=== PATIENT | female | born 1955 | race Caucasian/White ===

== ENCOUNTER → 2017-02-11 | Outpatient (CLI) | payer OTHER ==
[~2017-02-11] MED LIST: ABILIFY5 MG PO; AMLODIPINE10 MG PO; ANAPROX DS550 MG PO; ATIVAN0.5 MG PO; BUPROPION HCL150 M1 PO; COREG25 MG PO; DARVOCET N 1001 TAB PO; DAYPRO600 M1 PO; FERROUS SULFAT325 M1 PO; IBUPROFEN 30 M800 MG PO; LAMOTRIGINE200 MG PO; LASIX40 MG PO; LUVOX CR100 MG PO; METFORMIN1000 MG PO; METFORMIN500 MG PO; Meclizine25 MG; NAPROXEN500 M1 PO; PRILOSEC40 MG PO; ROBAXIN750 MG PO; SIMVASTATIN40 MG PO; ULTRAM50 MG PO; VICODIN 500 MG-1 TAB PO; [UNRECOGNIZED DRUG - MIXTURE] PO
[2017-02-11 09:37] LABS: HEMATOCRIT 35.5 % (37.0-47.0); HEMOGLOBIN 11.4 g/dl (12.0-16.0); MEAN CELL VOLUME 86.6 fl (81.0-99.0); MEAN CORPUSCULAR HGB 27.8 pg (27.0-31.0); MEAN CORPUSCULAR HGB CONC 32.1 g/dl (33.0-37.0); MEAN PLATELET VOLUME 9.5 fl (9.6-12.3); RED BLOOD COUNT 4.1 10*6/uL (4.10-5.10); RED CELL DISTRI WIDTH 14.2 % (0-14.5); WHITE BLOOD COUNT 4.8 10*3/uL (4.8-10.8)
[2017-02-11 09:49] LABS: ALBUMIN 3.7 gm/dl (3.1-4.5); ALKALINE PHOSPHATASE 84 U/L (45-117); BILIRUBIN, TOTAL 0.4 mg/dl (0.2-1.0); BUN 12 mg/dl (7-24); CARBON DIOXIDE 28 mmol/L (21-32); CHLORIDE 106 mmol/L (98-107); CHOLESTEROL 171 mg/dL (<200); EST GLOM FILT AFRICAN AMERICAN > 60 ml/min; GLUCOSE 118 mg/dL (65-99); HDL CHOLESTEROL 52 mg/dl (40-60); LDL CHOLESTEROL 91 mg/dL (9-159); POTASSIUM 3.9 mmol/L (3.5-5.1); SGOT/AST 16 IU/L (3-35); SGPT/ALT 17 U/L (12-78); SODIUM 144 mmol/L (136-145); TOTAL PROTEIN 6.8 gm/dL (6.4-8.2); TRIGLYCERIDES 141 mg/dl (<150); VLDL CHOLESTEROL 28 mg/dL (6-40)
[2017-02-11 09:59] LABS: HEMOGLOBIN A1c 5.9 % (4.8-5.6)
== END | disposition home or self-care (01) ==
LOC: LAB 09:14
PROVIDERS: Family Medicine
DX: I10 Essential (primary) hypertension (principal); E78.00 Pure hypercholesterolemia, unspecified; E74.9 Disorder of carbohydrate metabolism, unspecified; E55.9 Vitamin D deficiency, unspecified

== ENCOUNTER → 2017-05-18 | Outpatient (CLI) | payer OTHER ==
[2017-05-18 10:19] LABS: ALBUMIN 3.6 gm/dl (3.1-4.5); BILIRUBIN, TOTAL 0.2 mg/dl (0.2-1.0); POTASSIUM 4.4 mmol/L (3.5-5.1); TOTAL PROTEIN 7.2 gm/dL (6.4-8.2)
== END | disposition home or self-care (01) ==
LOC: LAB 09:37
PROVIDERS: Family Medicine
DX: I10 Essential (primary) hypertension (principal); E78.00 Pure hypercholesterolemia, unspecified; F41.1 Generalized anxiety disorder; E74.00 Glycogen storage disease, unspecified; R73.09 Other abnormal glucose

== ENCOUNTER → 2017-07-16 | Outpatient (CLI) | payer OTHER ==
[2017-07-16 11:02] LABS: HEMATOCRIT 35.2 % (37.0-47.0); HEMOGLOBIN 11.6 g/dl (12.0-16.0); MEAN CELL VOLUME 84.2 fl (81.0-99.0); MEAN CORPUSCULAR HGB 27.8 pg (27.0-31.0); MEAN PLATELET VOLUME 9.3 fl (9.6-12.3); RED BLOOD COUNT 4.18 10*6/uL (4.10-5.10); RED CELL DISTRI WIDTH 14.1 % (0-14.5); WHITE BLOOD COUNT 5.2 10*3/uL (4.8-10.8)
[2017-07-16 11:23] LABS: ALBUMIN 3.6 gm/dl (3.1-4.5); ALKALINE PHOSPHATASE 81 U/L (45-117); BUN 15 mg/dl (7-24); CHLORIDE 100 mmol/L (98-107); CHOLESTEROL 188 mg/dL (<200); CREATININE 0.87 mg/dL (0.55-1.02); HDL CHOLESTEROL 54 mg/dl (40-60); LDL CHOLESTEROL 112 mg/dL (9-159); POTASSIUM 3.4 mmol/L (3.5-5.1); SGOT/AST 12 IU/L (3-35); SGPT/ALT 11 U/L (12-78); SODIUM 140 mmol/L (136-145); TOTAL PROTEIN 6.7 gm/dL (6.4-8.2); TRIGLYCERIDES 110 mg/dl (<150); VLDL CHOLESTEROL 22 mg/dL (6-40)
== END | disposition home or self-care (01) ==
LOC: LAB 10:38
PROVIDERS: Family Medicine
DX: E78.00 Pure hypercholesterolemia, unspecified (principal); E55.9 Vitamin D deficiency, unspecified; M19.90 Unspecified osteoarthritis, unspecified site; I10 Essential (primary) hypertension; Z79.899 Other long term (current) drug therapy

== ENCOUNTER → 2017-09-16 | Outpatient (CLI) | payer OTHER | END | disposition home or self-care (01) | LOC: MAMMO 09-09 08:40 | DX: Z12.31 Encounter for screening mammogram for malignant neoplasm of breast (principal) ==

== ENCOUNTER 2017-10-28 13:48 | Emergency (ER) | payer OTHER ==
[~2017-10-28] VITALS: Ht 165.1 cm; Wt 98.9 kg
== END 2017-10-28 15:00 | disposition home or self-care (01) ==
LOC: ED 13:48
DX: R93.0 Abnormal findings on diagnostic imaging of skull and head, not elsewhere classified (principal); Z90.711 Acquired absence of uterus with remaining cervical stump; Z79.899 Other long term (current) drug therapy

== ENCOUNTER → 2017-11-18 | Outpatient (CLI) | payer OTHER ==
[2017-11-18 12:04] LABS: ALBUMIN 3.6 gm/dl (3.1-4.5); BUN 21 mg/dl (7-24); CHLORIDE 104 mmol/L (98-107); CREATININE 1.02 mg/dL (0.55-1.02); POTASSIUM 3.9 mmol/L (3.5-5.1); SGOT/AST 15 IU/L (3-35); SGPT/ALT 18 U/L (12-78); SODIUM 140 mmol/L (136-145); TOTAL PROTEIN 7.4 gm/dL (6.4-8.2)
[2017-11-18 12:05] LABS: ALKALINE PHOSPHATASE 100 U/L (45-117)
== END | disposition home or self-care (01) ==
LOC: EDSTATUS 10:52 → LAB 10:52
PROVIDERS: Family Medicine
DX: E87.6 Hypokalemia (principal)

== ENCOUNTER → 2018-01-27 | Outpatient (CLI) | payer OTHER ==
[2018-01-27 12:25] LABS: ALBUMIN 3.4 gm/dl (3.1-4.5); BUN 23 mg/dl (7-24); CHLORIDE 101 mmol/L (98-107); CHOLESTEROL 188 mg/dL (<200); CREATININE 1.02 mg/dL (0.55-1.02); POTASSIUM 3.5 mmol/L (3.5-5.1); SGOT/AST 9 IU/L (3-35); SGPT/ALT 16 U/L (12-78); SODIUM 139 mmol/L (136-145)
[2018-01-27 12:27] LABS: ALKALINE PHOSPHATASE 81 U/L (45-117); CPK 19 U/L (26-192); HDL CHOLESTEROL 52 mg/dl (40-60); LDL CHOLESTEROL 93 mg/dL (9-159); TOTAL PROTEIN 6.7 gm/dL (6.4-8.2); TRIGLYCERIDES 214 mg/dl (<150); VLDL CHOLESTEROL 43 mg/dL (6-40)
== END | disposition home or self-care (01) ==
LOC: LAB 11:13
PROVIDERS: Family Medicine
DX: I10 Essential (primary) hypertension (principal); E78.00 Pure hypercholesterolemia, unspecified; E74.9 Disorder of carbohydrate metabolism, unspecified; F41.1 Generalized anxiety disorder; E74.09 Other glycogen storage disease; K21.9 Gastro-esophageal reflux disease without esophagitis; R73.09 Other abnormal glucose; Z79.899 Other long term (current) drug therapy

== ENCOUNTER → 2018-06-16 | Outpatient (CLI) | payer MEDICARE, MEDICAID ==
[2018-06-16 09:40] LABS: HEMATOCRIT 36.2 % (37.0-47.0); HEMOGLOBIN 11.6 g/dl (12.0-16.0); MEAN CELL VOLUME 86.6 fl (81.0-99.0); MEAN CORPUSCULAR HGB 27.8 pg (27.0-31.0); MEAN PLATELET VOLUME 10.3 fl (9.6-12.3); RED BLOOD COUNT 4.18 10*6/uL (4.10-5.10); RED CELL DISTRI WIDTH 14.1 % (0-14.5); WHITE BLOOD COUNT 6.3 10*3/uL (4.8-10.8)
[2018-06-16 10:13] LABS: ALBUMIN 3.7 gm/dl (3.1-4.5); CREATININE 1.25 mg/dL (0.55-1.02); POTASSIUM 3.9 mmol/L (3.5-5.1); TOTAL PROTEIN 7.2 gm/dL (6.4-8.2)
== END | disposition home or self-care (01) ==
LOC: LAB 08:48
PROVIDERS: Family Medicine
DX: I48.91 Unspecified atrial fibrillation (principal); E74.9 Disorder of carbohydrate metabolism, unspecified; E78.00 Pure hypercholesterolemia, unspecified; E55.9 Vitamin D deficiency, unspecified; D64.9 Anemia, unspecified; Z79.899 Other long term (current) drug therapy

== ENCOUNTER → 2018-08-08 | Outpatient (CLI) | payer MEDICARE, MEDICAID ==
[2018-08-08 10:55] LABS: ALBUMIN 3.4 gm/dl (3.1-4.5); ALKALINE PHOSPHATASE 78 U/L (45-117); BUN 16 mg/dl (7-24); CHLORIDE 104 mmol/L (98-107); CREATININE 1.03 mg/dL (0.55-1.02); POTASSIUM 3.9 mmol/L (3.5-5.1); SGOT/AST 9 IU/L (3-35); SGPT/ALT 12 U/L (12-78); SODIUM 143 mmol/L (136-145); TOTAL PROTEIN 6.5 gm/dL (6.4-8.2)
== END | disposition home or self-care (01) ==
LOC: LAB 08:10
PROVIDERS: Nurse Practitioner Family
DX: I48.91 Unspecified atrial fibrillation (principal); F33.1 Major depressive disorder, recurrent, moderate; I10 Essential (primary) hypertension; E78.5 Hyperlipidemia, unspecified; R94.39 Abnormal result of other cardiovascular function study

== ENCOUNTER → 2018-11-10 | Outpatient (CLI) | payer MEDICARE, OTHER ==
[~2018-11-10] MED LIST changes: +CEFUROXIME AXE250 MG PO; +ELIQUIS5 M1 PO; +FLUVOXAMINE100 MG PO; +Ipratropium Brom3 ML NEB; +K-LOR 20MEQ20 ME1 PO; +LOPRESSOR25 MG PO; +PERCOCET 5-3251 EACH PO; +PRAVACHOL20 MG PO; +PREDNISONE5 MG PO; +PROPAFENONE HC150 MG PO; +VRAYLAR3 MG PO
[2018-11-10 09:38] LABS: HEMOGLOBIN 12.1 g/dl (12.0-16.0); MEAN CORPUSCULAR HGB 27.7 pg (27.0-31.0); MEAN CORPUSCULAR HGB CONC 31.8 g/dl (33.0-37.0); MEAN PLATELET VOLUME 9.7 fl (9.6-12.3); RED BLOOD COUNT 4.37 10*6/uL (4.10-5.10); RED CELL DISTRI WIDTH 15.2 % (0-14.5); WHITE BLOOD COUNT 4.5 10*3/uL (4.8-10.8)
[2018-11-10 09:54] LABS: CHLORIDE 109 mmol/L (98-107); SODIUM 142 mmol/L (136-145)
[2018-11-10 10:14] LABS: ALBUMIN 3.5 gm/dl (3.1-4.5); ALKALINE PHOSPHATASE 94 U/L (45-117); BUN 18 mg/dl (7-24); CHOLESTEROL 182 mg/dL (<200); CPK 23 U/L (26-192); CREATININE 0.92 mg/dL (0.55-1.02); HDL CHOLESTEROL 50 mg/dl (40-60); LDL CHOLESTEROL 111 mg/dL (9-159); SGOT/AST 9 IU/L (3-35); SGPT/ALT 15 U/L (12-78); TOTAL PROTEIN 7.1 gm/dL (6.4-8.2); TRIGLYCERIDES 107 mg/dl (<150); VLDL CHOLESTEROL 21 mg/dL (6-40)
== END | disposition home or self-care (01) ==
LOC: LAB 08:55
PROVIDERS: Family Medicine
DX: I10 Essential (primary) hypertension (principal); E55.9 Vitamin D deficiency, unspecified; E74.9 Disorder of carbohydrate metabolism, unspecified; E78.00 Pure hypercholesterolemia, unspecified; R53.83 Other fatigue

== ENCOUNTER 2018-11-16 21:56 | Inpatient (IN) | payer MEDICARE, OTHER ==
[~2018-11-16] VITALS: Ht 162.5 cm; Wt 99.3 kg
--- NOTE | ~2018-11-16 | PR ---
[place], [place] PROGRESS NOTE NAME: DIGNA PITTMAN [facility] #: [id number] UNIT #: [id number] ROOM: 507 DOCTOR: JAEL GAO MD BIRTHDATE: [birth year] DOS: 11/18/2018 SUBJECTIVE: The patient is about to undergo bronchoscopy this morning. Does not have any new complaints. OBJECTIVE: VITAL SIGNS: Graphic trend shows a pressure 127/64, pulse of 73, respirations 18 and temperature 97.5. LUNGS: Diminished breath sounds, scattered wheezes and rhonchi. HEART: Regular. ABDOMEN: Obese, soft. EXTREMITIES: Without any edema. CT of the chest done yesterday showed volume loss with consolidative process in the right lower lobe and left lower lobe, ground glass opacities in the right upper lobe. This is a large hiatal hernia, possibility of gastric outlet obstruction was raised but clinically there is no evidence of that. ASSESSMENT AND PLAN: 1. Consolidation with pneumonia, bilateral lower lung carbajal with volume loss. The patient to undergo bronchoscopy for possible mucous plugging. 2. Large hiatal hernia. Discussed with the patient about having surgery as an outpatient. Right now, there is no evidence of volvulus or obstruction. 3. Benign hypertension, controlled. JAEL GAO MD CM:PNTRANS [id number] JAEL GAO MD 11/18/18 1431 interface
--- NOTE | ~2018-11-16 | WRIGHTHP ---
[place], [place] PATIENT HISTORY AND PHYSICAL EXAM NAME: DIGNA PITTMAN [facility] #: [id number] UNIT #: [id number] ROOM: 507 DOCTOR: JAEL GAO MD BIRTHDATE: [birth year] DOS: HISTORY OF PRESENT ILLNESS: The patient states for the last week, she has not felt good. She has had diffuse aches and pains and inability to ambulate because of extreme weakness and tiredness and has had a cough, so she decided to come into the Emergency Room where she was evaluated and was diagnosed with pneumonitis and was admitted. This morning, she has continued to have a moist cough and she has audible wheezing. She denied having any chest pains, palpitations, does not have any fever or chills, does not have any abdominal pain, nausea, any emesis. PAST MEDICAL HISTORY: Significant for; 1. History of atrial fibrillation. 2. Hypertension. 3. Type 2 diabetes mellitus. MEDICATIONS: Amlodipine, omeprazole, metformin, Vraylar, fluvoxamine, Pravachol, potassium, Eliquis, propafenone, metoprolol, oxycodone, Lamictal, and Lasix. SOCIAL HISTORY: Nonsmoker right now. Denies using any alcohol. Lives at home. PHYSICAL EXAMINATION: GENERAL: She is awake and alert and oriented. VITAL SIGNS: Graphic trend shows a blood pressure of 116/76, pulse of 78, respirations 18, temperature 97.9. LUNGS: Diminished breath sounds, scattered wheezes and rhonchi. HEART: Regular. ABDOMEN: Soft, nontender. EXTREMITIES: Without any edema. ASSESSMENT AND PLAN: 1. The patient comes in with cough and feeling poorly. Flu titer was done, which was negative. I believe the patient has acute asthmatic bronchitis. The patient will be placed on IV steroids and breathing treatments and IV antibiotics. We will also arrange for a CT of the chest to make sure she does not have an infectious process in the lung. 2. Chronic atrial fibrillation, on Eliquis, which will be continued. 3. Benign hypertension, controlled. 4. Type 2 diabetes mellitus. Restart home medications. [place], [place] PATIENT HISTORY AND PHYSICAL EXAM NAME: DIGNA PITTMAN [facility] #: [id number] UNIT #: [id number] ROOM: 507 DOCTOR: JAEL GAO MD BIRTHDATE: [birth year] JAEL GAO MD CM:HISPHYS:PATIENT HISTORY AND PHYSICAL EXAMINATION [id number] JAEL GAO MD 11/18/18 1235 interface
--- NOTE | ~2018-11-16 | PR ---
[place], [place] PROGRESS NOTE NAME: [facility] [id number] UNIT #: [id number] ROOM: 507 DOCTOR: ROGERIO LEOS MD BIRTHDATE: [birth year] DOS: 11/22/2018 SUBJECTIVE: The patient was noted comfortable at this time without any acute distress, resting comfortably on the bed. She has not been reported any symptoms of fever or chills. The coughing has been improving. The patient was noted with pulse ox sat 88% per nursing staff. The patient woke up from sleep and on room air. PHYSICAL EXAMINATION: VITAL SIGNS: Normal temperature, respiratory rate 18, heart rate 73, blood pressure 141/73. Pulse oxygen saturation at rest otherwise noted 92% later on. HEENT: Examination shows chronic obesity. NECK: Supple. CARDIOVASCULAR: S1, S2 is audible. LUNGS: The patient without any wheeze or crackles at this time. ABDOMEN: Soft, nontender. Bowel sounds present. EXTREMITIES: The patient was noted without any acute edema. IMPRESSION: 1. The patient who has been currently noted with progressive resolution and improvement in acute exacerbation of chronic obstructive pulmonary disease after bronchoscopy. The coughing, wheezing, and shortness of breath has improved markedly. 2. Chronic obesity. 3. Possible suspicion of obstructive sleep apnea disorder as well with nocturnal hypoxia. PLAN OF MANAGEMENT: Home oxygen assessment with a 6-minute walk test could be done. The patient will be continued other therapy for plan of management previously in progress. The discharge planning was discussed with Dr. Islas. Oxygen supplementation prescribed upon discharge if needed. Outpatient assessment recommended for pulmonary disease and possible sleep apnea disorder as well. [place], [place] PROGRESS NOTE NAME: DIGNA PITTMAN UNIT #: [id number] ROOM: 507 DOCTOR: ROGERIO LEOS MD BIRTHDATE: [birth year] ROGERIO ARGUETA MD CM:PNTRANS [id number] ROGERIO DORAN MD 11/22/18 1511 interface
--- NOTE | ~2018-11-16 | CON ---
[place], [place] REPORT OF CONSULTATION NAME: DIGNA PITTMAN [facility] #: [id number] UNIT #: [id number] ROOM: 507 DOCTOR: ROGERIO LEOS MD BIRTHDATE: [birth year] DOS: 11/18/2018 PULMONARY CONSULTATION, EVALUATION AND MANAGEMENT REQUESTING PHYSICIAN: Dr. Jessica Walton REASON FOR CONSULTATION: Bronchoscopy with atelectasis of the lung, rule out endobronchial obstruction. HISTORY OF PRESENT ILLNESS: A 63-year-old white female patient, who had been seen in my office in 2009 and has not had any regular followup visit. The patient has been seen at that time for sleep apnea disorder management. She has been admitted under the care of Dr. Jessica Walton and primary care physician of the patient is noted as Dr. Sherman. The symptoms have been reported with general progressive weakness and tiredness ongoing for the past 3 days. The symptoms have been noted progressive. She started having symptoms of cough, chest congestion, and inability to expectorate sputum. Denies symptoms of hemoptysis. The patient also developed progressive wheezing with current symptoms as well. Denies symptoms of chest pain. The patient's shortness breath was noted worsened. She came into the emergency room where she has been admitted to the hospital. Chest x-ray was done, and then later on, CT scan chest was done that shows possibility of obstruction and partial atelectasis of the right lower lobe and other abnormalities on CT scan reported. She has been made n.p.o. for bronchoscopy, which was planned to be done today for further assessment and the patient was agreeable for that. REVIEW OF SYSTEMS: CONSTITUTIONAL: Fatigue and tiredness noted. Denies symptoms of fever or chills. EYES: Denies any burning, redness, or tenderness. EARS, NOSE, THROAT: Denies sore throat, hoarseness, otalgia, postnasal drainage or epistaxis. CARDIOVASCULAR: Denies anginal pain, edema or pain of the lower extremities. GASTROINTESTINAL: Denies dysphagia, nausea, vomiting, diarrhea, abdominal pain, hematemesis, melena, or abnormal weight loss. History of chronic moderate obesity is known. GENITOURINARY: Denies dysuria, urinary incontinence, hematuria or flank pain. MUSCULOSKELETAL: Denies acute joint pain, redness, or tenderness. SKIN: Denies abnormal lesions or rashes. CENTRAL NERVOUS SYSTEM: Denies dizziness, headache, diplopia or syncopal episodes. Remaining systems were reviewed, they were noted all negative. PAST MEDICAL HISTORY: 1. Known with history of obstructive sleep apnea disorder diagnosed in 2003, which was moderate to severe, treated with CPAP. 2. History of permanent atrial fibrillation. 3. Essential hypertension. 4. Type 2 diabetes mellitus. [place], [place] REPORT OF CONSULTATION NAME: DIGNA PITTMAN UNIT #: [id number] ROOM: 507 DOCTOR: ROGERIO LEOS MD BIRTHDATE: [birth year] 5. Chronic moderate obesity. 6. History of general anxiety disorder. 7. History of bipolar disorder. 8. Intervertebral disk disease with lower back pain. SOCIAL HISTORY: The patient is and lives at home. She has not reported any symptoms of alcohol or any illicit drug use. She has been known with past history of tobacco use, but not noted active tobacco use at the present time. PAST SURGICAL HISTORY: Reported as partial hysterectomy. FAMILY HISTORY: Reported for diabetes and cancer. The patient's father at 62 years from complication of lung cancer. Mother at the age of 6464 years old from adrenal gland cancer as well. MEDICATIONS: Medications which have been currently administered on this hospitalization are use of omeprazole, simvastatin, Prozac, metformin, propafenone, Solu-Medrol 200 mg b.i.d., Mucinex, metoprolol tartrate, Lasix, Lamictal, Tegretol, amlodipine, Eliquis, Mucinex, DuoNeb, Rocephin, and Zithromax. DRUG ALLERGIES: The patient is reported as no known drug allergies. PHYSICAL EXAMINATION: GENERAL: This is a 63-year-old female patient, currently noted to be awake and alert this morning of assessment. Height of 5 feet 4 inches, weight of 219 pounds, BMI is 37. VITAL SIGNS: Normal temperature, respiratory rate 18-20, heart rate 73-80, blood pressure 124/64 to 123/60. Pulse oxygen saturation was recorded at rest on room air as 93% saturation, later today on nasal cannula 96% saturation. HEENT: Head was atraumatic. Eyes nonicterus. NECK: Supple. Decreased posterior pharyngeal space. CARDIOVASCULAR: S1 and S2 audible. LUNGS: The patient was noted with decreased breath sounds bilaterally with scattered wheezing and crackles in the lungs bilaterally, more on the right than the left side. ABDOMEN: Soft, obese, nontender. Bowel sound is present. EXTREMITIES: The patient is noted without any acute edema, clubbing or cyanosis. Chronic obesity findings. MUSCULOSKELETAL: Without any acute deformities. CENTRAL NERVOUS SYSTEM: Cranial nerves 2-12 intact. LABORATORY DATA: Lactic acid noted 2.5 yesterday noted normal on 11/17/2018. CBC of 11/17/2018, WBC count 12.6, hemoglobin 10.3, hematocrit 32.0, platelet count was normal. Influenza A and B, nasal washing antigen on 11/17/2018 was negative. CMP that was done on 11/17/2018 noted BUN 29, creatinine 1.36, glucose 116, sodium 134, magnesium 1.2. Chest x-ray that was done on 11/17/2018 was noted with elevation of the right hemidiaphragm. CT scan of the chest that was done on 11/17/2018 was noted eventration of the right hemidiaphragm with a large hiatal hernia, volume loss, air bronchogram, and consolidative change in [place], [place] REPORT OF CONSULTATION NAME: DIGNA PITTMAN UNIT #: [id number] ROOM: 507 DOCTOR: HAROLDO LEOS MDM BIRTHDATE: [birth year] the right lower lobe as well as in the medial left lower lobe. IMPRESSION: 1. The patient has been currently admitted to the hospital with acute exacerbation of chronic obstructive pulmonary disease. 2. History of past tobacco use, rule out endobronchial obstruction with mucus or endobronchial malignant process. 3. The patient with chronic severe obesity and obstructive sleep apnea disorder as well. 4. History of permanent atrial fibrillation with long-term anticoagulation. 5. A very large hiatal hernia noted, which is noted mostly in the right side of the chest giving false-appearing eventration of the hemidiaphragm. 6. The patient with history of essential hypertension. 7. Type 2 diabetes mellitus. 8. Mild hypomagnesemia. 9. The patient with elevation of BUN and creatinine, consider acute kidney injury secondary to intravascular volume depletion. PLAN OF MANAGEMENT: Bronchoscopy will be done this morning, which will be diagnostic and therapeutic at the same time. Continue current medical management of current acute pneumonia suspicion. Continue steroids for medical management of acute exacerbation of COPD. Bronchodilator is to be continued as well at the same dose. Other treatment changes will be made based on progression of the illness. The risks and the benefits of bronchoscopy were discussed with the patient and she was agreeable for the procedure to be performed. Other additional treatment changes will be made for the patient based on progression of the illness. She was noted with elevated BUN and creatinine at this time, most likely intravascular volume depletion, possibly acute kidney injury as well. Continue oral hydration. Obtain labs in the morning to reassess the improvement in BUN and creatinine. ADDENDUM The patient's assessment, management, and discharge done by Dr. Jessica Walton personally. ROGERIO ARGUETA MD CM:CONSTR:REPORT OF CONSULTATION 1356 11/19/18 0402 interface
--- NOTE | ~2018-11-16 | PR ---
[place], [place] PROGRESS NOTE NAME: DIGNA PITTMAN [facility] #: [id number] UNIT #: [id number] ROOM: 507 DOCTOR: ROGERIO LEOS MD BIRTHDATE: [birth year] DOS: 11/19/2018 SUBJECTIVE: The patient noted comfortable at this time without any acute distress at the present time. Has not been reported any symptoms of hemoptysis, fever, or chills. The patient has bronchoscopy done yesterday resulting in improvement in the respiratory symptom. The patient was still noted coughing, which has not been completely resolved, but decreased significantly. The wheezing was still reported intermittently. There were no symptoms of chest pain. Denies symptoms of nausea, vomiting, diarrhea, abdominal pain, hematemesis, melena, or hematochezia. Denies symptoms of headache or diplopia. OBJECTIVE: VITAL SIGNS: For the patient which are recorded showed the temperature noted as normal. The respiratory rate range between 18-20, heart rate 70-75, blood pressure 121/60 to 137/60. Pulse oxygen saturation recorded as 93% saturation on 2 liters nasal cannula. HEENT: Examination shows head was atraumatic. Eyes nonicterus. NECK: Supple. CARDIOVASCULAR: S1, S2 is audible. LUNGS: The patient was noted with moderate expiratory wheezing without any crackles. Decreased breath sounds in the right lower lung. ABDOMEN: Soft and nontender. Bowel sounds present. EXTREMITIES: The patient was noted without any acute edema. Chronic obesity findings. MUSCULOSKELETAL: The patient noted without any acute deformities. CENTRAL NERVOUS SYSTEM: The patient's cranial nerves 2-12 intact. LABORATORY DATA: Blood culture, no bacterial growth on 11/16/2018. The Gram stain of the bronchial washings yesterday, many white blood cell, few gram-positive cocci in pairs and chains. Preliminary normal arthur. Culture was noted, final culture results were pending. IMPRESSION: 1. The patient with area of atelectasis as well as acute pneumonia. 2. Eventration of the right hemidiaphragm as well. 3. The patient with elevated BUN and creatinine noted on admission secondary to intravascular volume depletion. 4. Acute exacerbation of chronic obstructive pulmonary disease as well. PLAN OF MANAGEMENT: Continuation of current plan of management at this time. Monitor culture results. Continue steroids, bronchodilators, and oxygen. Obtain a chest x-ray in the morning to reassess the improvement in the aeration of the lung as well. Obtain the labs of the patient as well in the morning for the patient to assess the improvement in the BUN and creatinine. Other therapy, plan of management, care plan for inpatient treatment. [place], [place] PROGRESS NOTE NAME: DIGNA PITTMAN UNIT #: [id number] ROOM: 7 DOCTOR: ROGERIO LEOS MD BIRTHDATE: [birth year] ROGERIO ARGUETA MD CM:PNTRANS 08 [phone] ROGERIO DORAN MD 11/19/182110 interface
--- NOTE | ~2018-11-16 | PR ---
[place], [place] PROGRESS NOTE NAME: DIGNA PITTMAN [facility] #: [id number] UNIT #: [id number] ROOM: 507 DOCTOR: JAEL GAO MD BIRTHDATE: [birth year] DOS: SUBJECTIVE: The patient is doing well, does not have any complaints today. OBJECTIVE: VITAL SIGNS: Graphic trend shows a pressure of 141/73, pulse of 73, respirations 18, and temperature 97.7. LUNGS: Diminished breath sounds, few wheezes are heard, but much improved since admission. HEART: Regular. ABDOMEN: Obese, soft, nontender. EXTREMITIES: Without any edema. ASSESSMENT AND PLAN: 1. Acute exacerbation of chronic obstructive pulmonary disease, improved and stable. 2. Pneumonia, bilateral, with improvement radiologically as well as clinically. 3. Status post bronchoscopy for mucus plugging and volume loss. This has corrected and the patient's bronch cultures so far are negative. 4. Large hiatal hernia with some evidence of mild volvulus radiologically, but not clinically. The patient is advised to see specialist as an outpatient to have surgical correction of the hiatal hernia. JAEL GAO MD CM:PNTRANS [phone] JAEL GAO MD 11/22/18 1323 interface
--- NOTE | ~2018-11-16 | EKG ---
[place], [place] ELECTROCARDIOGRAM REPORT NAME: DIGNA PITTMAN UNIT #: [id number] ROOM: 507 DOCTOR: TALITA DRAFT REPORT BIRTHDATE: [birth year] [facility] Test Date: 2018-11-16 Test Time: 22:25:57 Pat Name: DIGNA PITTMAN Department: Room: 507 Gender: F [employer] Director: Moira Macdonald : 1955 Requested By: MAGUI PATE DNP Order Number: [id number] Reading MD: Daniel Tirado MD Measurements Intervals [place] Rate: 74 P: 44 TN: 47 QRS: 20 QRSD: 119 T: 37 QT: 420 QTc: 466 Interpretive Statements Sinus rhythm Nonspecific intraventricular conduction delay Baseline wander in lead(s) II,aVR,aVF Electronically Signed On 11-17-2018 17:43:32 PST by Daniel Tirado MD CM:EKGRPT:ELECTROCARDIOGRAM REPORT 1743 MAGUI PATE DNP EPIPHANY DRAFT REPORT MAGUI PATE DNP
--- NOTE | ~2018-11-16 | PR ---
[place], [place] PROGRESS NOTE NAME: DIGNA PITTMAN [facility] #: [id number] UNIT #: [id number] ROOM: 507 DOCTOR: SHON HOWARD MD BIRTHDATE: [birth year] DOS: 11/19/2018 SUBJECTIVE: The patient is still short of breath. PHYSICAL EXAMINATION: VITAL SIGNS: Blood pressure 128/65, heart rate 77 beats per minute, breathing 18 times per minute, temperature 98 degrees Fahrenheit. GENERAL APPEARANCE: Generalized weakness. Obesity. HEENT AND NECK: Exam within normal limits. CARDIOVASCULAR SYSTEM: Heart rate is regular in rate and rhythm. S1 and S2 normally audible. LUNGS: Decreased breath sounds all over. The patient had atelectasis of the right lower lobe and left lower lobe, status post bronchoscopy. Generalized weakness. Scattered wheezing and rhonchi on lung auscultation. ABDOMEN: Soft, nontender. No obvious organomegaly. Bowel sounds are present. EXTREMITIES: Without significant cyanosis or edema. IMPRESSION: 1. The patient with consolidation pneumonia bilaterally in the lower lungs, status post bronchoscopy by Dr. Rose, being treated with antibiotics, oxygen and breathing treatments. 2. Large hiatal hernia being treated and followed. 3. Benign essential hypertension. Blood pressure is being monitored and controlled. 4. Type 2 diabetes mellitus, treated with metformin. 5. Mixed hyperlipidemia, treated with simvastatin. 6. Gastroesophageal reflux disease and esophagitis, treated with omeprazole. SHON HOWARD MD CM:PNTRANS [id number] [phone] SHON HOWARD MD 11/20/18 1519 interface
--- NOTE | ~2018-11-16 | PR ---
[place], [place] PROGRESS NOTE NAME: DIGNA PITTMAN [facility] #: [id number] UNIT #: [id number] ROOM: 507 DOCTOR: JAEL GAO MD BIRTHDATE: [birth year] DOS: SUBJECTIVE: The patient is doing well, does not have any new complaints. OBJECTIVE: VITAL SIGNS: Graphic trend shows a pressure of 141/73, pulse of 77, respirations 17, temperature 98.2. LUNGS: Clear. HEART: Regular. ABDOMEN: Soft. EXTREMITIES: Without any edema. ASSESSMENT AND PLAN: 1. Acute exacerbation of chronic obstructive pulmonary disease. Still with some minimal bronchospasm. 2. Volume loss from mucus plugging, status post bronchoscopy with cultures are being negative. Repeat chest x-ray will be done to make sure it is completely cleared. Hiatal hernia without any evidence of obstructive symptoms. JAEL GAO MD CM:PNTRANS [phone] JAEL GAO MD 11/21/18 1451 interface
--- NOTE | ~2018-11-16 | PR ---
[place], [place] PROGRESS NOTE [facility] [id number] UNIT #: [id number] ROOM: 507 DOCTOR: ROGERIO LEOS MD BIRTHDATE: [birth year] DOS: 11/20/2018 SUBJECTIVE: The patient continue with current medical management with improvement and reduction in the respiratory symptom. The coughing has improved significantly. Wheezing was also resolving significantly. There were no symptoms of fever or chills or chest pain. OBJECTIVE: VITAL SIGNS: Normal temperature, respiratory rate 18, heart rate 81, blood pressure 149/75. The pulse oxygen saturation recorded on 2 liters nasal cannula, 91-95% saturation. HEENT: Examination shows head was atraumatic. Eyes nonicterus. NECK: Supple. CARDIOVASCULAR: S1, S2 is audible. LUNGS: No crackles. Wheezing was noted improving progressively. Mild expiratory wheezing present at this time. ABDOMEN: Soft, nontender. Bowel sounds present. EXTREMITIES: No acute change. LABORATORY DATA: The culture of the sputum noted normal arthur. Chest x-ray that was done yesterday does not show any acute new abnormalities. Large hiatal hernia was noted. IMPRESSION: 1. The patient with resolving area of atelectasis as well as acute pneumonia of the right lower lobe. 2. Large hiatal hernia. 3. Resolving acute exacerbation of chronic obstructive pulmonary disease. PLAN OF TREATMENT: No changes in the plan for at this time except may be considered for home discharge. Continue other therapy, plan of management, care plan as well. Usual care, other therapies, plan of care with additional treatment changes will be done based on progression of illness. [place], [place] PROGRESS NOTE [facility]: [id number] UNIT #: [id number] ROOM: 507 DOCTOR: ROGERIO LEOS MD BIRTHDATE: [birth year] ROGERIO ARGUETA MD CM:PNTRANS [phone] ROGERIO DORAN MD 11/21/18258 interface
--- NOTE | ~2018-11-16 | WRIGHTHP ---
[place], [place] PATIENT HISTORY AND PHYSICAL EXAM [id number] #: [id number] ROOM: 507 DOCTOR: JAEL GAO MD BIRTHDATE: [birth year] DOS: 11/18/2018 HISTORY OF PRESENT ILLNESS: The patient is a 51-year-old who comes in with complaints of cough and shortness of breath for the last one week. The patient states that she has received antibiotics as an outpatient, did not improve and she was increasingly short of breath and weak and so decided finally to come into the Emergency Room. She does not have any fever, chills, any abdominal pain, nausea, any emesis. PAST MEDICAL HISTORY: Significant for; 1. Benign hypertension. 2. Chronic back pain. 3. History of chronic atrial fibrillation. 4. Major depression. MEDICATIONS: She is on are amlodipine, omeprazole, metformin, Vraylar, fluvoxamine, Pravachol, potassium, Eliquis, propafenone, Percocet, metoprolol, Lamictal, and Lasix. SOCIAL HISTORY: Nonsmoker. Does not use any alcohol. PHYSICAL EXAMINATION: GENERAL: She is awake and alert and oriented, in no major distress, very moist, hacky cough. VITAL SIGNS: Graphic trend shows a pressure of 127/64, pulse of 70, respirations 20, temperature 98.5. LUNGS: Diminished breath sounds, scattered wheezes and rhonchi. HEART: Irregular, controlled heart rate. ABDOMEN: Obese. EXTREMITIES: Without any edema. ASSESSMENT AND PLAN: 1. The patient presents with shortness of breath, cough with most likely underlying pneumonia, possible gram negative. The patient has been placed on IV antibiotics, breathing treatments. Sputum cultures, blood cultures have been done. 2. Benign hypertension, controlled. 3. Chronic atrial fibrillation, on long-term use of anticoagulants, which will be continued. 4. Chronic pain from primary osteoarthritis with spinal stenosis. Continue current pain medications. [place], [place] PATIENT HISTORY AND PHYSICAL EXAM NAME: DIGNA PITTMAN UNIT #: [id number] ROOM: 507 DOCTOR: JAEL GAO MD BIRTHDATE: [birth year] JAEL GAO MD CM:HISPHYS:PATIENT HISTORY AND PHYSICAL EXAMINATION [id number] JAEL GAO MD 12/01/18 0847 interface
--- NOTE | ~2018-11-16 | PR ---
[place], [place] PROGRESS NOTE NAME: DIGNA PITTMAN UNIT #: [id number] ROOM: 507 DOCTOR: SHON HOWARD MD BIRTHDATE: [birth year] DOS: 11/20/2018 SUBJECTIVE: The patient is breathing better, but has significant amount of cough despite of taking cough medicine. OBJECTIVE: VITAL SIGNS: Blood pressure 125/64, heart rate of 79 beats per minute, breathing 20 times per minute, afebrile. GENERAL APPEARANCE: The patient is alert and oriented x 3, in no visible distress. Generalized weakness. HEENT AND NECK: Exam within normal limits. CARDIOVASCULAR SYSTEM: Heart rate is regular in rate and rhythm. S1 and S2 normally audible. LUNGS: Clear to auscultation. ABDOMEN: Soft, nontender. No obvious organomegaly. Bowel sounds are present. EXTREMITIES: Without significant cyanosis or edema. IMPRESSION: Significant cough, some shortness of breath. SHON HOAWRD MD CM:PNTRANS [phone] SHON HOWARD MD 11/21/18329 interface
--- NOTE | ~2018-11-16 | PROC NOTE ---
[place], [place] PROCEDURE NOTE [id number] UNIT #: [id number] ROOM: 507 DOCTOR: ELLIE DORAN MD,ROGERIO BIRTHDATE: [birth year] DOS: 11/18/2018 FIBEROPTIC BRONCHOSCOPY PREOPERATIVE DIAGNOSES: Atelectasis of the right lower lobe and the left lower lobe subsegment, rule out endobronchial lesions or obstruction with mucus. POSTOPERATIVE DIAGNOSES: Endobronchial obstructive lesions noted. Mucous impaction noted with mucus plug in endobronchial tree bilaterally. COMPLICATION: None. PROCEDURE DESCRIPTION: Informed consent obtained from the patient. The patient was brought to the OR and placed in supine position. Conscious sedation administered by the Anesthesia Department. After achieving proper sedation, airway was introduced into the mouth. Bronchoscope was advanced into the airway into laryngeal area. Epiglottis and vocal cords were seen. The vocal cords were moving symmetrically with movements. Bronchoscope was advanced through vocal cord and tracheal lumen, shows moderate amount of thick mucus secretion with purulent secretions, suctioned out up to eunice level. The right upper, right middle, right lower, left upper, lingular lower lobe bronchi were noted with multiple plugs and mucus present in several subsegments. All the mucus plugs were removed from the endobronchial tree without any difficulty. Postoperative findings were discussed with the patient's family members in the recovery room as well. No change in treatment at this time will be necessary. Current finding would be considered benign and not consistent with malignant process resulting in obstruction of the endobronchial tree at this time. Further assessment needs to be done with followup CT scan in the next few weeks as well to document the resolution of current acute abnormalities. ROGERIO ARGUETA MD CM:PROCNOTE:PROCEDURE NOTE [id number] ROGERIO DORAN MD
--- NOTE | ~2018-11-16 | DS ---
[place], [place] DISCHARGE SUMMARY NAME: DIGNA PITTMAN [facility] #: [id number] UNIT #: [id number] ROOM: 507 DOCTOR: JAEL GAO MD BIRTHDATE: [birth year] DOS: HOSPITAL COURSE: The patient is 63 years old. The patient is not known to us, patient of Dr. Sherman, comes in with complaints of difficulty breathing. Please refer H and P for details. After admission, the patient had lactic acid elevation, so diagnosed with sepsis and was admitted. A CT of the chest was performed after admission, which showed presence of bilateral pneumonia and volume loss. At this time, even though the patient is on multiple antibiotics, a consultation with Dr. Rose was obtained. Bronchoscopy scheduled. Bronch cultures have been negative. Chest x-ray shows improvement in the pneumonia and the volume loss was corrected. She also does have a large hiatal hernia and has a possibility of mild volvulus radiologically, but not clinically. The patient has had symptoms of nausea and emesis in the past and is advised to see Thoracic Surgery as an outpatient to have correction of the hiatal hernia. The patient's bronchospasm has improved with the treatment plan. The plan is to discharge her to home today. DISCHARGE MEDICATIONS: Includes nebulizer breathing treatment with DuoNeb q.4, oxygen assessment is being performed right now and may require oxygen supplementation. I do not have the complete results yet at the time of dictation. Ceftin 250 twice daily, prednisone 5 b.i.d. for 10 days, omeprazole 20 daily, amlodipine 10 daily, metformin 1000 b.i.d., Lamictal 200 daily, furosemide 40 daily, Vraylar 3 mg daily, fluvoxamine 200 daily, Pravachol 20 daily, potassium 20 daily, Eliquis 5 b.i.d., propafenone 150 t.i.d., metoprolol 25 b.i.d., Percocet 5/325 twice a day p.r.n. DISCHARGE DIAGNOSES: Also includes chronic atrial fibrillation with controlled heart rate, long-term use of anticoagulants, type 2 diabetes mellitus, benign hypertension. JAEL GAO MD CM:DISCHARG 9 [phone] JAEL GAO MD 11/22/1839 interface
--- NOTE | ~2018-11-16 | PR ---
[place], [place] PROGRESS NOTE NAME: DIGNA PITTMAN UNIT #: [id number] ROOM: 507 DOCTOR: JAEL GAO MD BIRTHDATE: [birth year] DOS: The patient presents with shortness of breath. JAEL GAO MD CM:PNTRANS [id number] JAEL GAO MD 12/01/18 0848 [facility].
--- NOTE | ~2018-11-16 | PR ---
[place], [place] PROGRESS NOTE NAME: DIGNA PITTMAN [facility] #: [id number] UNIT #: [id number] ROOM: 507 DOCTOR: ROGERIO LEOS MD BIRTHDATE: [birth year] DOS: 11/21/2018 PULMONARY PROGRESS NOTE SUBJECTIVE: The patient was noted comfortable at this time, resting in the bed without any acute distress this morning. Shortness of breath and wheezing all of these symptoms have been improving progressively. There were no symptoms of chest pain, fever or chills. OBJECTIVE: VITAL SIGNS: For the patient, which have been recorded shows a normal temperature, respiratory rate 17, heart rate 77, blood pressure 140/73 this morning. Pulse ox saturation on room air 98% saturation. HEENT: Examination shows no acute change. NECK: Supple. CARDIOVASCULAR: S1, S2 audible. LUNGS: Decreased breaths in the right lower lung. There were no wheezing or crackles. ABDOMEN: Soft, nontender. Bowel sounds are present. EXTREMITIES: Without acute edema. LABORATORY DATA: Chest x-ray done this morning shows persistent large hiatal hernia, area of compression atelectasis right lower lobe. Improvement in the aeration noted compared to previous chest x-rays. IMPRESSION: The patient with resolving acute tracheobronchitis with area of atelectasis and exacerbation of chronic obstructive pulmonary disease. Large hiatal hernia with acute right lower lobe pneumonia. The bronchial washing cultures were noted no bacterial growths. PLAN OF MANAGEMENT: The patient could be considered home discharge on oral tapering prednisone, antibiotics, and other treatment as necessary. Discharge planning per primary care attending. [place], [place] PROGRESS NOTE NAME: [facility]É [facility]TMANDRA [id number] UNIT #: [id number] ROOM: 507 DOCTOR: ROGERIO LEOS MD BIRTHDATE: [birth year] ROGERIO ARGUETA MD CM:PNTRANS [id number] ROGERIO DORAN MD 11/21/18 1251 interface
[~2018-11-16 21:56] MED LIST changes: -CEFUROXIME AXE250 MG PO; -ELIQUIS5 M1 PO; -FLUVOXAMINE100 MG PO; -Ipratropium Brom3 ML NEB; -K-LOR 20MEQ20 ME1 PO; -LOPRESSOR25 MG PO; -PERCOCET 5-3251 EACH PO; -PRAVACHOL20 MG PO; -PREDNISONE5 MG PO; -PROPAFENONE HC150 MG PO; -VRAYLAR3 MG PO
[2018-11-16 21:59] VITALS: BP 117/52
[2018-11-16] MEDS ORDERED: VRAYLAR3 MG PO (22:34)
[2018-11-16] MEDS ORDERED: FLUVOXAMINE100 MG PO (22:35)
[2018-11-16] MEDS ORDERED: PRAVACHOL20 MG PO (22:35)
[2018-11-16] MEDS ORDERED: K-LOR 20MEQ20 ME1 PO (22:36)
[2018-11-16] MEDS ORDERED: ELIQUIS5 M1 PO (22:36)
[2018-11-16] MEDS ORDERED: PROPAFENONE HC150 MG PO (22:37)
[2018-11-16] MEDS ORDERED: LOPRESSOR25 MG PO (22:37)
[2018-11-16] MEDS ORDERED: PERCOCET 5-3251 EACH PO (22:38)
[2018-11-16 23:07] LABS: BASO % 0.1 % (0.0-1.0); EOS % 0.1 % (1.0-4.0); HEMOGLOBIN 10.3 g/dl (12.0-16.0); LYMPH # 1.4 10*3/uL (1.3-4.4); MEAN CELL VOLUME 85.8 fl (81.0-99.0); MEAN CORPUSCULAR HGB 27.6 pg (27.0-31.0); MEAN CORPUSCULAR HGB CONC 32.2 g/dl (33.0-37.0); MEAN PLATELET VOLUME 10.2 fl (9.6-12.3); MONO % 8.2 % (3.0-9.0); NEUT # 10.1 10*3/uL (2.3-7.9); PLATELET COUNT AUTOMATED 263 10*3/uL (130-400); RED BLOOD COUNT 3.73 10*6/uL (4.10-5.10); RED CELL DISTRI WIDTH 15.6 % (0-14.5); WHITE BLOOD COUNT 12.6 10*3/uL (4.8-10.8)
[2018-11-16 23:20] LABS: ACT PARTIAL THROMBO TIME 33.3 SECONDS (20.8-31.5); INTERNATIONAL NORM RATIO 1.1 (2.0-3.5)
[2018-11-16 23:28] LABS: ALBUMIN 2.8 gm/dl (3.1-4.5); ALKALINE PHOSPHATASE 103 U/L (45-117); BUN 29 mg/dl (7-24); CHLORIDE 101 mmol/L (98-107); CREATININE 1.36 mg/dL (0.55-1.02); POTASSIUM 3.7 mmol/L (3.5-5.1); SGOT/AST 31 IU/L (3-35); SGPT/ALT 20 U/L (12-78); SODIUM 134 mmol/L (136-145); TOTAL PROTEIN 6.7 gm/dL (6.4-8.2)
[2018-11-16 23:33] LABS: TROPONIN I < 0.015 ng/ml (<0.045)
[2018-11-17 00:07] VITALS: BP 112/50
[2018-11-17 01:35] VITALS: BP 122/46
[2018-11-17 08:00] VITALS: BP 116/76
[2018-11-17 12:00] VITALS: BP 116/57
[2018-11-17 16:00] VITALS: BP 118/50
[2018-11-17 20:00] VITALS: BP 113/51
[2018-11-18] VITALS (8 sets, daily range): BP systolic 104–127; BP diastolic 53–71
[2018-11-19] VITALS: BP 121/60; BP 143/72
[2018-11-19 08:00] VITALS: BP 137/60
[2018-11-19 12:00] VITALS: BP 128/60
[2018-11-19 16:00] VITALS: BP 128/65
[2018-11-19 16:06] LABS: ACID FAST SPEC PROCESSING Concentration (.)
[2018-11-19 20:00] VITALS: BP 137/53
[2018-11-20] VITALS: BP 135/79
[2018-11-20 06:17] LABS: HEMATOCRIT 32.2 % (37.0-47.0); HEMOGLOBIN 9.9 g/dl (12.0-16.0); MEAN CELL VOLUME 87.7 fl (81.0-99.0); MEAN CORPUSCULAR HGB CONC 30.7 g/dl (33.0-37.0); MEAN PLATELET VOLUME 9.9 fl (9.6-12.3); PLATELET COUNT AUTOMATED 409 10*3/uL (130-400); RED BLOOD COUNT 3.67 10*6/uL (4.10-5.10); RED CELL DISTRI WIDTH 16.2 % (0-14.5); WHITE BLOOD COUNT 8.2 10*3/uL (4.8-10.8)
[2018-11-20 06:49] LABS: ALBUMIN 2.7 gm/dl (3.1-4.5); ALKALINE PHOSPHATASE 82 U/L (45-117); BUN 33 mg/dl (7-24); CHLORIDE 106 mmol/L (98-107); CREATININE 1.05 mg/dL (0.55-1.02); SGOT/AST 12 IU/L (3-35); SGPT/ALT 21 U/L (12-78); SODIUM 141 mmol/L (136-145); TOTAL PROTEIN 6.6 gm/dL (6.4-8.2)
[2018-11-20 06:54] LABS: PLATELET SUFFICIENCY HIGH (NORMAL); TOTAL CELLS COUNTED 100 #CELLS
[2018-11-20 12:00] VITALS: BP 126/54; BP 149/75
[2018-11-20 16:00] VITALS: BP 125/64
[2018-11-20 20:00] VITALS: BP 129/68
[2018-11-21] VITALS: BP 156/76
[2018-11-21 06:23] LABS: HEMATOCRIT 31.4 % (37.0-47.0); HEMOGLOBIN 9.5 g/dl (12.0-16.0); MEAN CELL VOLUME 88.2 fl (81.0-99.0); MEAN CORPUSCULAR HGB 26.7 pg (27.0-31.0); MEAN CORPUSCULAR HGB CONC 30.3 g/dl (33.0-37.0); MEAN PLATELET VOLUME 9.4 fl (9.6-12.3); PLATELET COUNT AUTOMATED 371 10*3/uL (130-400); RED BLOOD COUNT 3.56 10*6/uL (4.10-5.10); RED CELL DISTRI WIDTH 15.9 % (0-14.5); WHITE BLOOD COUNT 8.4 10*3/uL (4.8-10.8)
[2018-11-21 07:01] LABS: PLATELET SUFFICIENCY NORMAL (NORMAL); TOTAL CELLS COUNTED 100 #CELLS; TOXIC GRANULATION SLIGHT
[2018-11-21 07:15] LABS: ALBUMIN 2.6 gm/dl (3.1-4.5); ALKALINE PHOSPHATASE 70 U/L (45-117); BUN 29 mg/dl (7-24); CHLORIDE 104 mmol/L (98-107); POTASSIUM 4.1 mmol/L (3.5-5.1); SGOT/AST 11 IU/L (3-35); SGPT/ALT 19 U/L (12-78); SODIUM 140 mmol/L (136-145); TOTAL PROTEIN 6.1 gm/dL (6.4-8.2)
[2018-11-21 08:00] VITALS: BP 141/73
[2018-11-21 12:00] VITALS: BP 133/71
[2018-11-21 16:00] VITALS: BP 136/53
[2018-11-21 20:00] VITALS: BP 148/78
[2018-11-22] VITALS: BP 133/68
[2018-11-22 06:23] LABS: HEMATOCRIT 33.7 % (37.0-47.0); HEMOGLOBIN 10.2 g/dl (12.0-16.0); MEAN CELL VOLUME 88.5 fl (81.0-99.0); MEAN CORPUSCULAR HGB 26.8 pg (27.0-31.0); MEAN CORPUSCULAR HGB CONC 30.3 g/dl (33.0-37.0); MEAN PLATELET VOLUME 9.5 fl (9.6-12.3); NUCLEATED RED BLOOD CELL 0.3 % (0.0-0.0); PLATELET COUNT AUTOMATED 449 10*3/uL (130-400); RED BLOOD COUNT 3.81 10*6/uL (4.10-5.10); WHITE BLOOD COUNT 11.8 10*3/uL (4.8-10.8)
[2018-11-22 06:57] LABS: ALBUMIN 2.7 gm/dl (3.1-4.5); ALKALINE PHOSPHATASE 75 U/L (45-117); BUN 26 mg/dl (7-24); CHLORIDE 102 mmol/L (98-107); CREATININE 0.89 mg/dL (0.55-1.02); POTASSIUM 4.3 mmol/L (3.5-5.1); SGOT/AST 12 IU/L (3-35); SGPT/ALT 19 U/L (12-78); SODIUM 138 mmol/L (136-145); TOTAL PROTEIN 6.3 gm/dL (6.4-8.2)
[2018-11-22 07:03] LABS: TOTAL CELLS COUNTED 100 #CELLS
[2018-11-22 07:04] LABS: PLATELET SUFFICIENCY HIGH (NORMAL); TOXIC GRANULATION SLIGHT
[2018-11-22 08:00] VITALS: BP 141/73
[2018-11-22] MEDS ORDERED: Ipratropium Brom3 ML NEB (08:46)
[2018-11-22] MEDS ORDERED: PREDNISONE5 MG PO (08:48)
[2018-11-22] MEDS ORDERED: CEFUROXIME AXE250 MG PO (08:48)
[2018-12-29 11:03] LABS: ACID FAST CULTURE Negative (.)
== END 2018-11-22 12:02 | disposition home or self-care (01) | DRG 871 ==
LOC: ED 21:56 → 5E 11-17 00:35 → EDHOLD 11-17 00:35 → 5E 11-17 00:55
PROVIDERS: Internal Medicine Critical Care Medicine; Nurse Practitioner Family; ADMIT Internal Medicine
PROC: 0BC78ZZ Extirpation of Matter from Left Main Bronchus, Via Natural or Artificial Opening Endoscopic (ICD-10-PCS; principal; 2018-11-18)
PROC: 0BC68ZZ Extirpation of Matter from Right Lower Lobe Bronchus, Via Natural or Artificial Opening Endoscopic (ICD-10-PCS; principal; 2018-11-18)
PROC: 0BC58ZZ Extirpation of Matter from Right Middle Lobe Bronchus, Via Natural or Artificial Opening Endoscopic (ICD-10-PCS; principal; 2018-11-18)
PROC: 0BC98ZZ Extirpation of Matter from Lingula Bronchus, Via Natural or Artificial Opening Endoscopic (ICD-10-PCS; principal; 2018-11-18)
PROC: 0BCB8ZZ Extirpation of Matter from Left Lower Lobe Bronchus, Via Natural or Artificial Opening Endoscopic (ICD-10-PCS; principal; 2018-11-18)
PROC: 0BC48ZZ Extirpation of Matter from Right Upper Lobe Bronchus, Via Natural or Artificial Opening Endoscopic (ICD-10-PCS; principal; 2018-11-18)
PROC: 0BC38ZZ Extirpation of Matter from Right Main Bronchus, Via Natural or Artificial Opening Endoscopic (ICD-10-PCS; principal; 2018-11-18)
PROC: 0BC18ZZ Extirpation of Matter from Trachea, Via Natural or Artificial Opening Endoscopic (ICD-10-PCS; principal; 2018-11-18)
PROC: 0BC88ZZ Extirpation of Matter from Left Upper Lobe Bronchus, Via Natural or Artificial Opening Endoscopic (ICD-10-PCS; principal; 2018-11-18)
DX: A41.9 Sepsis, unspecified organism (principal); J18.1 Lobar pneumonia, unspecified organism; Q79.1 Other congenital malformations of diaphragm; K56.2 Volvulus; N17.9 Acute kidney failure, unspecified; J44.1 Chronic obstructive pulmonary disease with (acute) exacerbation; J44.0 Chronic obstructive pulmonary disease with (acute) lower respiratory infection; J98.11 Atelectasis; G89.29 Other chronic pain; M54.9 Dorsalgia, unspecified; M46.90 Unspecified inflammatory spondylopathy, site unspecified; M48.00 Spinal stenosis, site unspecified; E66.9 Obesity, unspecified; J20.9 Acute bronchitis, unspecified; K44.9 Diaphragmatic hernia without obstruction or gangrene; G47.33 Obstructive sleep apnea (adult) (pediatric); F41.1 Generalized anxiety disorder; E83.42 Hypomagnesemia; F31.9 Bipolar disorder, unspecified; E78.2 Mixed hyperlipidemia; K21.0 Gastro-esophageal reflux disease with esophagitis; I48.2 Chronic atrial fibrillation; E11.9 Type 2 diabetes mellitus without complications; I10 Essential (primary) hypertension; Z79.01 Long term (current) use of anticoagulants; Z90.710 Acquired absence of both cervix and uterus; Z83.3 Family history of diabetes mellitus; Z80.9 Family history of malignant neoplasm, unspecified; Z68.37 Body mass index [BMI] 37.0-37.9, adult

== ENCOUNTER → 2019-04-05 | Outpatient (CLI) | payer MEDICARE, OTHER ==
[~2019-04-05] MED LIST changes: +CEFUROXIME AXE250 MG PO; +ELIQUIS5 M1 PO; +FLUVOXAMINE100 MG PO; +Ipratropium Brom3 ML NEB; +K-LOR 20MEQ20 ME1 PO; +LOPRESSOR25 MG PO; +PERCOCET 5-3251 EACH PO; +PRAVACHOL20 MG PO; +PREDNISONE5 MG PO; +PROPAFENONE HC150 MG PO; +VRAYLAR3 MG PO
== END | disposition home or self-care (01) ==
LOC: MAMMO 07:54
DX: Z12.31 Encounter for screening mammogram for malignant neoplasm of breast (principal)

== ENCOUNTER → 2019-06-08 | Outpatient (CLI) | payer MEDICARE, OTHER ==
[2019-06-08 10:45] LABS: HEMATOCRIT 32.2 % (37.0-47.0); HEMOGLOBIN 9.9 g/dl (12.0-16.0); MEAN CELL VOLUME 83.4 fl (81.0-99.0); MEAN CORPUSCULAR HGB 25.6 pg (27.0-31.0); MEAN CORPUSCULAR HGB CONC 30.7 g/dl (33.0-37.0); RED BLOOD COUNT 3.86 10*6/uL (4.10-5.10); RED CELL DISTRI WIDTH 15.2 % (0-14.5); WHITE BLOOD COUNT 4.7 10*3/uL (4.8-10.8)
[2019-06-08 11:25] LABS: ALBUMIN 3.5 gm/dl (3.1-4.5); BUN 19 mg/dl (7-24); CHLORIDE 105 mmol/L (98-107); CHOLESTEROL 181 mg/dL (<200); CREATININE 1.07 mg/dL (0.55-1.02); POTASSIUM 4.1 mmol/L (3.5-5.1); SGOT/AST 11 IU/L (3-35); SGPT/ALT 18 U/L (12-78); SODIUM 139 mmol/L (136-145); TRIGLYCERIDES 159 mg/dl (<150); VLDL CHOLESTEROL 32 mg/dL (6-40)
[2019-06-08 11:28] LABS: ALKALINE PHOSPHATASE 116 U/L (45-117); CPK 32 U/L (26-192); HDL CHOLESTEROL 52 mg/dl (40-60); LDL CHOLESTEROL 97 mg/dL (9-159); TOTAL PROTEIN 6.9 gm/dL (6.4-8.2)
== END | disposition home or self-care (01) ==
LOC: LAB 10:22
PROVIDERS: Family Medicine
DX: E11.9 Type 2 diabetes mellitus without complications (principal); E55.9 Vitamin D deficiency, unspecified; I10 Essential (primary) hypertension; K21.9 Gastro-esophageal reflux disease without esophagitis

== ENCOUNTER → 2019-08-02 | Outpatient (CLI) | payer MEDICARE, MEDICAID ==
[2019-08-02 10:41] LABS: HEMATOCRIT 31.4 % (37.0-47.0); HEMOGLOBIN 9.4 g/dl (12.0-16.0); MEAN CELL VOLUME 83.7 fl (81.0-99.0); MEAN CORPUSCULAR HGB 25.1 pg (27.0-31.0); MEAN CORPUSCULAR HGB CONC 29.9 g/dl (33.0-37.0); MEAN PLATELET VOLUME 9.8 fl (9.6-12.3); RED BLOOD COUNT 3.75 10*6/uL (4.10-5.10); RED CELL DISTRI WIDTH 14.8 % (0-14.5); WHITE BLOOD COUNT 5.8 10*3/uL (4.8-10.8)
[2019-08-02 11:09] LABS: ALBUMIN 3.5 gm/dl (3.1-4.5); CREATININE 1.19 mg/dL (0.55-1.02); POTASSIUM 4.2 mmol/L (3.5-5.1)
== END | disposition home or self-care (01) ==
LOC: LAB 09:43
PROVIDERS: Nurse Practitioner Family
DX: I25.118 Atherosclerotic heart disease of native coronary artery with other forms of angina pectoris (principal); I48.0 Paroxysmal atrial fibrillation; E78.5 Hyperlipidemia, unspecified; I10 Essential (primary) hypertension; G47.33 Obstructive sleep apnea (adult) (pediatric); R06.09 Other forms of dyspnea; R42 Dizziness and giddiness; R60.0 Localized edema; I34.0 Nonrheumatic mitral (valve) insufficiency; I27.20 Pulmonary hypertension, unspecified; R94.39 Abnormal result of other cardiovascular function study

== ENCOUNTER → 2019-09-07 | Outpatient (CLI) | payer MEDICARE, MEDICAID ==
[2019-09-07 12:08] LABS: HEMATOCRIT 31.5 % (37.0-47.0); HEMOGLOBIN 9.4 g/dl (12.0-16.0); MEAN CELL VOLUME 81.8 fl (81.0-99.0); MEAN CORPUSCULAR HGB 24.4 pg (27.0-31.0); MEAN CORPUSCULAR HGB CONC 29.8 g/dl (33.0-37.0); MEAN PLATELET VOLUME 9.5 fl (9.6-12.3); RED BLOOD COUNT 3.85 10*6/uL (4.10-5.10); RED CELL DISTRI WIDTH 14.9 % (0-14.5); WHITE BLOOD COUNT 4.5 10*3/uL (4.8-10.8)
[2019-09-07 12:13] LABS: ALBUMIN 3.4 gm/dl (3.1-4.5); ALKALINE PHOSPHATASE 107 U/L (45-117); BUN 14 mg/dl (7-24); CHLORIDE 106 mmol/L (98-107); CHOLESTEROL 173 mg/dL (<200); CREATININE 1.07 mg/dL (0.55-1.02); HDL CHOLESTEROL 47 mg/dl (40-60); LDL CHOLESTEROL 94 mg/dL (9-159); POTASSIUM 3.5 mmol/L (3.5-5.1); SGOT/AST 16 IU/L (3-35); SGPT/ALT 17 U/L (12-78); SODIUM 141 mmol/L (136-145); TOTAL PROTEIN 7.1 gm/dL (6.4-8.2); TRIGLYCERIDES 161 mg/dl (<150); VLDL CHOLESTEROL 32 mg/dL (6-40)
[2019-09-07 12:15] LABS: CPK 33 U/L (26-192)
== END | disposition home or self-care (01) ==
LOC: LAB 10:53
PROVIDERS: Family Medicine
DX: E78.00 Pure hypercholesterolemia, unspecified (principal); R60.9 Edema, unspecified; I10 Essential (primary) hypertension; F41.9 Anxiety disorder, unspecified; E11.9 Type 2 diabetes mellitus without complications

== ENCOUNTER → 2019-12-06 | Outpatient (CLI) | payer MEDICARE, MEDICAID ==
[2019-12-06 11:15] LABS: HEMATOCRIT 29.3 % (37.0-47.0); HEMOGLOBIN 8.6 g/dl (12.0-16.0); MEAN CELL VOLUME 79.6 fl (81.0-99.0); MEAN CORPUSCULAR HGB 23.4 pg (27.0-31.0); MEAN CORPUSCULAR HGB CONC 29.4 g/dl (33.0-37.0); MEAN PLATELET VOLUME 9.2 fl (9.6-12.3); RED BLOOD COUNT 3.68 10*6/uL (4.10-5.10); RED CELL DISTRI WIDTH 15.7 % (0-14.5); WHITE BLOOD COUNT 4.5 10*3/uL (4.8-10.8)
[2019-12-06 11:49] LABS: CHLORIDE 108 mmol/L (98-107); POTASSIUM 3.9 mmol/L (3.5-5.1); SODIUM 140 mmol/L (136-145)
[2019-12-06 12:05] LABS: ALBUMIN 3.3 gm/dl (3.1-4.5); ALKALINE PHOSPHATASE 95 U/L (45-117); BUN 17 mg/dl (7-24); CHOLESTEROL 168 mg/dL (<200); CREATININE 1.06 mg/dL (0.55-1.02); HDL CHOLESTEROL 51 mg/dl (40-60); LDL CHOLESTEROL 82 mg/dL (9-159); SGOT/AST 15 IU/L (3-35); SGPT/ALT 19 U/L (12-78); TOTAL PROTEIN 6.5 gm/dL (6.4-8.2); TRIGLYCERIDES 177 mg/dl (<150); VLDL CHOLESTEROL 35 mg/dL (6-40)
== END | disposition home or self-care (01) ==
LOC: LAB 10:29
PROVIDERS: Family Medicine
DX: I10 Essential (primary) hypertension (principal); E11.9 Type 2 diabetes mellitus without complications; R53.83 Other fatigue; E55.9 Vitamin D deficiency, unspecified; E78.00 Pure hypercholesterolemia, unspecified

== ENCOUNTER → 2020-03-11 | Outpatient (CLI) | payer MEDICARE, MEDICAID ==
[2020-03-11 08:08] LABS: BASO % 0.8 % (0.0-1.0); EOS # 0.1 10*3/uL (0.0-0.4); EOS % 2.3 % (1.0-4.0); HEMATOCRIT 31.5 % (37.0-47.0); LYMPH # 1.6 10*3/uL (1.3-4.4); LYMPH % 32.1 % (27.0-41.0); MEAN CELL VOLUME 75.7 fl (81.0-99.0); MEAN CORPUSCULAR HGB 22.1 pg (27.0-31.0); MEAN CORPUSCULAR HGB CONC 29.2 g/dl (33.0-37.0); MEAN PLATELET VOLUME 8.8 fl (9.6-12.3); MONO # 0.5 10*3/uL (0.1-1.0); MONO % 9.8 % (3.0-9.0); NEUT # 2.8 10*3/uL (2.3-7.9); NEUT % 54.8 % (47.0-73.0); PLATELET COUNT AUTOMATED 406 10*3/uL (130-400); RED BLOOD COUNT 4.16 10*6/uL (4.10-5.10); RED CELL DISTRI WIDTH 16.3 % (0-14.5); RETICULOCYTE % 1.56 % (0.50-2.50); WHITE BLOOD COUNT 5.1 10*3/uL (4.8-10.8)
[2020-03-11 08:28] LABS: ALBUMIN 3.6 gm/dl (3.1-4.5); CREATININE 1.25 mg/dL (0.55-1.02); TOTAL PROTEIN 7.3 gm/dL (6.4-8.2)
== END | disposition home or self-care (01) ==
LOC: LAB 07:41
PROVIDERS: Family Medicine
DX: D64.9 Anemia, unspecified (principal); E74.9 Disorder of carbohydrate metabolism, unspecified; E78.00 Pure hypercholesterolemia, unspecified; Z79.899 Other long term (current) drug therapy

== ENCOUNTER → 2020-04-19 | Outpatient (CLI) | payer MEDICARE, MEDICAID ==
[2020-04-19 10:20] LABS: BASO % 0.8 % (0.0-1.0); EOS # 0.1 10*3/uL (0.0-0.4); EOS % 2.4 % (1.0-4.0); HEMATOCRIT 34.1 % (37.0-47.0); LYMPH # 1.3 10*3/uL (1.3-4.4); MEAN CELL VOLUME 79.5 fl (81.0-99.0); MEAN CORPUSCULAR HGB 23.3 pg (27.0-31.0); MEAN CORPUSCULAR HGB CONC 29.3 g/dl (33.0-37.0); MEAN PLATELET VOLUME 9.2 fl (9.6-12.3); MONO # 0.4 10*3/uL (0.1-1.0); MONO % 8.5 % (3.0-9.0); NEUT # 3.2 10*3/uL (2.3-7.9); NEUT % 63.1 % (47.0-73.0); PLATELET COUNT AUTOMATED 358 10*3/uL (130-400); RED BLOOD COUNT 4.29 10*6/uL (4.10-5.10); RED CELL DISTRI WIDTH 19.6 % (0-14.5); WHITE BLOOD COUNT 5.1 10*3/uL (4.8-10.8)
[2020-04-19 11:49] LABS: FERRITIN 9.2 ng/mL (10.0-291.0)
== END | disposition home or self-care (01) ==
LOC: LAB 09:53
PROVIDERS: Nurse Practitioner Family
DX: D64.9 Anemia, unspecified (principal)

== ENCOUNTER → 2020-06-10 | Outpatient (CLI) | payer MEDICARE, MEDICAID ==
[2020-06-10 09:29] LABS: ALBUMIN 3.4 gm/dl (3.1-4.5); CREATININE 1.19 mg/dL (0.55-1.02); POTASSIUM 3.7 mmol/L (3.5-5.1)
[2020-06-10 09:30] LABS: TOTAL PROTEIN 7.1 gm/dL (6.4-8.2)
== END | disposition home or self-care (01) ==
LOC: LAB 08:31
PROVIDERS: ATTEND Family Medicine
DX: R60.0 Localized edema (principal)

== ENCOUNTER → 2020-08-07 | Outpatient (CLI) | payer MEDICARE, MEDICAID | END | disposition home or self-care (01) | LOC: MAMMO 10:35 | PROVIDERS: ATTEND Family Medicine | DX: Z12.31 Encounter for screening mammogram for malignant neoplasm of breast (principal); N64.89 Other specified disorders of breast ==

== ENCOUNTER → 2020-09-17 | Outpatient (CLI) | payer MEDICARE, MEDICAID ==
[2020-09-17 11:35] LABS: ALBUMIN 3.5 gm/dl (3.1-4.5); CREATININE 1.16 mg/dL (0.55-1.02)
== END | disposition home or self-care (01) ==
LOC: LAB 10:45
PROVIDERS: ATTEND Nurse Practitioner Family
DX: I11.0 Hypertensive heart disease with heart failure (principal); I50.31 Acute diastolic (congestive) heart failure; I34.0 Nonrheumatic mitral (valve) insufficiency; I48.0 Paroxysmal atrial fibrillation; I25.118 Atherosclerotic heart disease of native coronary artery with other forms of angina pectoris; R60.0 Localized edema; E78.00 Pure hypercholesterolemia, unspecified; I27.20 Pulmonary hypertension, unspecified; G47.33 Obstructive sleep apnea (adult) (pediatric)

== ENCOUNTER → 2020-11-15 | Outpatient (CLI) | payer MEDICARE, MEDICAID ==
[2020-11-15 12:02] LABS: HEMATOCRIT 36.4 % (37.0-47.0); MEAN CORPUSCULAR HGB 29.3 pg (27.0-31.0); MEAN CORPUSCULAR HGB CONC 32.1 g/dl (33.0-37.0); MEAN PLATELET VOLUME 9.2 fl (9.6-12.3); RED CELL DISTRI WIDTH 13.3 % (0-14.5); WHITE BLOOD COUNT 6.8 10*3/uL (4.8-10.8)
[2020-11-15 12:34] LABS: ALBUMIN 3.3 gm/dl (3.1-4.5); CREATININE 2.88 mg/dL (0.55-1.02); POTASSIUM 4.6 mmol/L (3.5-5.1)
== END | disposition home or self-care (01) ==
LOC: LAB 11:44
PROVIDERS: ATTEND Family Medicine
DX: I10 Essential (primary) hypertension (principal); E78.00 Pure hypercholesterolemia, unspecified; E74.9 Disorder of carbohydrate metabolism, unspecified; Z79.899 Other long term (current) drug therapy

== ENCOUNTER → 2020-11-25 | Outpatient (CLI) | payer MEDICARE, MEDICAID ==
[2020-11-25 10:11] LABS: ALBUMIN 3.5 gm/dl (3.1-4.5); CREATININE 2.4 mg/dL (0.55-1.02); POTASSIUM 4.6 mmol/L (3.5-5.1)
== END | disposition home or self-care (01) ==
LOC: LAB 09:02
PROVIDERS: ATTEND Family Medicine
DX: N17.9 Acute kidney failure, unspecified (principal)

== ENCOUNTER → 2021-01-01 | Outpatient (CLI) | payer MEDICARE, MEDICAID ==
[2021-01-01 11:54] LABS: ALBUMIN 3.5 gm/dl (3.1-4.5); CREATININE 3.78 mg/dL (0.55-1.02); POTASSIUM 4.7 mmol/L (3.5-5.1)
== END | disposition home or self-care (01) ==
LOC: LAB 10:54
PROVIDERS: ATTEND Family Medicine
DX: N18.31 Chronic kidney disease, stage 3a (principal)

== ENCOUNTER → 2021-01-31 | Outpatient (CLI) | payer MEDICARE, MEDICAID ==
[2021-01-31 10:35] LABS: ALBUMIN 3.4 gm/dl (3.1-4.5); CREATININE 3.29 mg/dL (0.55-1.02); POTASSIUM 3.7 mmol/L (3.5-5.1)
== END | disposition home or self-care (01) ==
LOC: LAB 09:32
PROVIDERS: ATTEND Family Medicine
DX: N18.30 Chronic kidney disease, stage 3 unspecified (principal); R80.9 Proteinuria, unspecified

== ENCOUNTER → 2021-02-02 | Outpatient (CLI) | payer MEDICARE, MEDICAID | END | disposition home or self-care (01) | LOC: LAB 09:52 | PROVIDERS: ATTEND Family Medicine | DX: N18.30 Chronic kidney disease, stage 3 unspecified (principal); R80.9 Proteinuria, unspecified ==

== ENCOUNTER 2021-02-08 07:18 | Emergency (ER) | payer MEDICARE, MEDICAID | END 2021-02-08 08:43 | LOC: ED 07:18 | DX: I46.9 Cardiac arrest, cause unspecified (principal); I50.9 Heart failure, unspecified; Z79.899 Other long term (current) drug therapy ==